=== PATIENT | male | born 1985 | race Caucasian/White ===

== ENCOUNTER 2018-07-11 00:27 | Inpatient (IN) | payer MEDICAID ==
[~2018-07-11] VITALS: Ht 180.3 cm; Wt 90.4 kg
[2018-07-11] MEDS ORDERED: RACEPINEPHRINE 2.25% 13.5 MG/0.5 ML NEBU INH ONE (00:30)
[2018-07-11 00:37] VITALS: BP 122/81
[2018-07-11] MEDS ORDERED: FAMOTIDINE 20 MG/2 ML VIAL IVP ONE ×2 (00:45→01:20)
[2018-07-11] MEDS ORDERED: diphenhydrAMINE 50 MG/ML VIAL IVP ONE ×4 (00:45→04:40)
[2018-07-11] MEDS ORDERED: PANTOPRAZOLE 40 MG INJ VIAL IVP ONE (01:20)
[2018-07-11] MEDS ORDERED: MORPHINE SULFATE 4 MG/ML SYR IVP ONE ×2 (01:20→04:15)
[2018-07-11] MEDS ORDERED: ONDANSETRON 4 MG/2 ML VIAL IVP ONE (01:50)
[2018-07-11] MEDS ORDERED: LORazepam 2 MG/ML VIAL IM/IVP PRN (04:05)
[2018-07-11] MEDS ORDERED: DOCUSATE SODIUM 100 MG GELCAP PO PRN (04:05)
[2018-07-11] MEDS ORDERED: ONDANSETRON 4 MG/2 ML VIAL IM/IVP PRN (04:05)
[2018-07-11] MEDS ORDERED: HYDROcodone/APAP 5/325 MG 1 TAB TAB PO PRN (04:05)
[2018-07-11] MEDS ORDERED: ZOLPIDEM 5 MG TAB PO PRN (04:05)
[2018-07-11] MEDS ORDERED: DEXT 5% / NACL 0.45% 1,000 ML IV SCH (04:05)
[2018-07-11] MEDS ORDERED: ACETAMINOPHEN 325 MG TAB PO PRN (04:05)
[2018-07-11] MEDS ORDERED: ELA50 PO (04:26)
[2018-07-11] MEDS ORDERED: BUPR300T70 PO (04:27)
[2018-07-11] MEDS ORDERED: ARIP5TAB8 PO (04:28)
[2018-07-11] MEDS ORDERED: CETI-32 PO (04:30)
[2018-07-11] MEDS ORDERED: ALPR0.5T2 PO (04:30)
[2018-07-11] MEDS ORDERED: BEN50 PO (04:31)
[2018-07-11] MEDS ORDERED: diphenhydrAMINE 50 MG/ML VIAL IVP PRN ×4 (04:40→08:35)
[2018-07-11] MEDS ORDERED: NACL 0.9% 1,000 ML IV SCH (05:15)
[2018-07-11] MEDS ORDERED: ALBUTEROL SULFATE/IPRATROPIU 3 ML SOL IH PRN (05:25)
[2018-07-11] MEDS ORDERED: KETOROLAC 15 MG/ML VIAL IVP PRN (06:25)
[2018-07-11] MEDS ORDERED: MORPHINE SULFATE 4 MG/ML SYR IVP PRN (06:25)
[2018-07-11] MEDS ORDERED: ALBUTEROL SULFATE/IPRATROPIU 3 ML SOL IH SCH (07:00)
[2018-07-11 07:14] LABS: ANION GAP 11.6 (8-16); CARBON DIOXIDE 29.2 mmol/L (21-32); POTASSIUM 3.8 mmol/L (3.5-5.1); TOTAL BILIRUBIN 0.3 mg/dL (0.0-1.0)
[2018-07-11 07:29] LABS: CHOL/HDL RATIO 5.6 (1-4.5); MAGNESIUM 1.9 mg/dL (1.8-2.4); PHOSPHORUS 5.1 mg/dL (2.5-4.9); THYROID STIMULATING HORMONE 6.5 uIU/mL (0.34-3.74)
[2018-07-11] MEDS ORDERED: FAMOTIDINE 20 MG TAB PO SCH (07:30)
[2018-07-11 07:51] LABS: BASOPHILS % (AUTO) 0.6 % (0.0-2.0); EOSINOPHILS # (AUTO) 0.1 K/uL (0-0.4); EOSINOPHILS % (AUTO) 1.3 % (0.0-4.0); HEMATOCRIT 46.6 % (36-52); HEMOGLOBIN 15.6 g/dL (12.0-18.0); LYMPHOCYTES # (AUTO) 2.2 K/uL (2.0-11.5); LYMPHOCYTES % (AUTO) 37.1 % (20.5-51.1); MEAN CORPUSCULAR HEMOGLOBIN 30 pg (27-31); MEAN CORPUSCULAR HGB CONC 34 g/dL (33-37); MONOCYTES # (AUTO) 0.6 K/uL (0.8-1.0); MONOCYTES % (AUTO) 10.9 % (1.7-9.3); NEUTROPHILS # (AUTO) 2.9 K/uL (1.8-7.7); NEUTROPHILS % (AUTO) 50.1 % (42.2-75.2); PLATELET COUNT (AUTO) 222 K/uL (140-450); RED CELL DISTRIBUTION WIDTH 13.7 % (11.6-13.7); WHITE BLOOD COUNT (AUTO) 5.8 K/uL (4.8-10.8)
[2018-07-11 08:00] VITALS: BP 118/76
[2018-07-11 08:14] LABS: PROTHROMBIN TIME 10.5 secs (10.8-13.4)
[2018-07-11] MEDS ORDERED: MORPHINE SULFATE 2 MG/ML SYR IVP PRN (08:18)
[2018-07-11] MEDS ORDERED: diphenhydrAMINE 50 MG/ML VIAL IVP SCH (08:30)
[2018-07-11] MEDS ORDERED: PANTOPRAZOLE 40 MG INJ VIAL IVP SCH (09:00)
[2018-07-11] MEDS ORDERED: ARIPiprazole 10 MG TAB PO SCH (09:00)
[2018-07-11] MEDS ORDERED: ATORVASTATIN 20 MG TAB PO SCH (09:00)
[2018-07-11] MEDS ORDERED: LORATADINE 10 MG TAB PO SCH ×2 (09:00)
[2018-07-11] MEDS ORDERED: CALCIUM ACETATE 667 MG TAB PO SCH (09:00)
[2018-07-11] MEDS ORDERED: buPROPion 75 MG TAB PO SCH (09:01)
[2018-07-11] MEDS ORDERED: SERTRALINE 50 MG TAB PO SCH (09:02)
[2018-07-11] MEDS ORDERED: MONTELUKAST SODIUM 10 MG TAB PO SCH (21:00)
[2018-07-11] MEDS ORDERED: AMITRIPTYLINE 50 MG TAB PO SCH (21:00)
[2018-07-12] MEDS ORDERED: SERTRALINE 50 MG TAB PO SCH (09:00)
[2018-07-12] MEDS ORDERED: buPROPion 75 MG TAB PO SCH (09:00)
== END 2018-07-11 10:50 | disposition left against medical advice (07) | DRG 811 ==
LOC: MED 00:27 → MTU 04:10
PROVIDERS: ADMIT General Practice; ATTEND General Practice
DX: T78.2XXA Anaphylactic shock, unspecified, initial encounter (principal); D89.42 Idiopathic mast cell activation syndrome; E66.3 Overweight; Z68.27 Body mass index [BMI] 27.0-27.9, adult; E78.1 Pure hyperglyceridemia; E83.39 Other disorders of phosphorus metabolism; F41.8 Other specified anxiety disorders; Z88.8 Allergy status to other drugs, medicaments and biological substances; F32.9 Major depressive disorder, single episode, unspecified; Z81.8 Family history of other mental and behavioral disorders; Z82.49 Family history of ischemic heart disease and other diseases of the circulatory system; J45.909 Unspecified asthma, uncomplicated; E02 Subclinical iodine-deficiency hypothyroidism; Z53.21 Procedure and treatment not carried out due to patient leaving prior to being seen by health care provider
CPT/HCPCS: 36415; 71045; 80053; 83036; 83690; 83735; 83880; 84100; 84439; 84443; 85025; 85610; 85730; 87081; 93005; 94640; 96372; 96374; 96375; 96376; 99285; C9113; J0171; J1200; J2270; J2405; J3490; J7030; J7620; Q0092

== ENCOUNTER 2018-07-14 01:05 | Inpatient (IN) | payer MEDICAID ==
[~2018-07-14] VITALS: Ht 177.8 cm; Wt 90.7 kg
[2018-07-14 01:05] VITALS: BP 131/105
[~2018-07-14 01:05] MED LIST: ALPR0.5T2 PO; ARIP5TAB8 PO; BEN50 PO; BUPR300T70 PO; CETI-32 PO; ELA50 PO
--- NOTE | 2018-07-14 01:05 | NUR ---
PT AMBULATED TO BED 10 WITH SEVERE RESPIRATORY DISTRESS.
[2018-07-14] MEDS ORDERED: NACL 0.9% 1,000 ML IV ONE (01:10)
[2018-07-14] MEDS ORDERED: FAMOTIDINE 20 MG/2 ML VIAL IVP ONE (01:10)
[2018-07-14] MEDS ORDERED: RACEPINEPHRINE 2.25% 13.5 MG/0.5 ML NEBU INH ONE ×3 (01:10→03:11)
--- NOTE | 2018-07-14 01:10 | NUR ---
PT PRESENTS TO ED WITH C/O SOB/ALLERGIC REACTION. PT HAS AUDIBLE WHEEZING INSPIRATORY AND EXPIRATORY. PT UNABLE TO SPEAK FULL SENTECES AT THIS TIME. PT IS TACHYNYPIC. ER MD AT BEDSIDE ALONG WITH RN AND RT. PT ATTACHED TO ALL MONITORS.
[2018-07-14] MEDS ORDERED: diphenhydrAMINE 50 MG/ML VIAL IM ONE (01:55)
--- NOTE | 2018-07-14 02:00 | NUR ---
PT BEGINNING TO HAVE AUDIBLE WHEEZING AND RASH SPREADING ER AWARE- NEW ORDERS RECEIVED IN EMAR.
[2018-07-14] MEDS ORDERED: diphenhydrAMINE 50 MG/ML VIAL ONE (02:06)
--- NOTE | 2018-07-14 02:10 | NUR ---
RT AT BEDSIDE.
[2018-07-14] MEDS ORDERED: NACL 0.9% 1,000 ML IV SCH (02:18)
--- NOTE | 2018-07-14 02:21 | NUR ---
UNABLE TO OBTAIN IV ACCESS AT THIS TIME. ER AWARE.
[2018-07-14] MEDS ORDERED: diphenhydrAMINE 50 MG CAP PO PRN (02:25)
[2018-07-14] MEDS ORDERED: FAMOTIDINE 20 MG TAB PO SCH (02:25)
--- NOTE | 2018-07-14 02:27 | NUR ---
PER ER -- OKAY TO ADMIT WITHOUT IV ACCESS.
--- NOTE | 2018-07-14 02:40 | NUR ---
PEPCID NOT GIVEN. PT UNABLE TO SWALLOW PO MEDS AT THIS TIME.
--- NOTE | 2018-07-14 02:40 | NUR ---
PT RECEIVED FROM ED NURSE AT BEDSIDE. PT TACHYCARDIC. AAOX4. INTRODUCED SELF TO PT. BOARD UPDATED. NO COMPLAINTS OF PAIN. PT STILL SOB. AFEBRILE. NO IV ACCESS FROM ER DUE TO PT BEING A HARD STICK. SKIN WARM, DRY, AND INTACT WITH NO OPEN WOUNDS. BED LOCKED IN LOW POSITION. CALL BARRERA WITHIN REACH. SAFETY PRECAUTIONS IN PLACE.
--- NOTE | 2018-07-14 02:50 | NUR ---
PT HAS COMPLAINTS OF SOB. AUDIBLE WHEEZING. PT STATES HE FEELS LIKE HIS THROAT IS CLOSING. MD NOTIFIED. NO NEW ORDERS PUT IN. RT CALLED FOR O2 SUPPORT.
--- NOTE | 2018-07-14 02:54 | NUR ---
Patient will be admitted to care of DR JENNINGS. Admited to TELE. Will go to room 120-B. Belongings list completed. Report to MISAEL MERCADO.
--- NOTE | 2018-07-14 02:55 | NUR ---
RT ARRIVED. O2 GIVEN BY NASAL CANNULA WITH NO AID IN SOB. RT BROUGHT IN BIVALVE MASK STILL NOT HELPING.
--- NOTE | 2018-07-14 03:00 | NUR ---
RT TO OVERRIDE FOR RACEPINEPHRINE DUE TO PT IN DISTRESS.
--- NOTE | 2018-07-14 03:10 | NUR ---
Racemic Epinephrine overriden and given to patient due to extreme upper airway swelling, medication ordered but not yet verified by pharmacy.
[2018-07-14 03:20] VITALS: BP 154/82
--- NOTE | 2018-07-14 03:20 | NUR ---
BENADRYL 25MG IM GIVEN.
--- NOTE | 2018-07-14 03:20 | NUR ---
RECEIVING TEAM MEMBER, ER CHARGE NURSE, AND SHOE COBBLER ATTEMPTING TO INSERT IV. PT VERY HARD STICK.
[2018-07-14] MEDS ORDERED: LORazepam 2 MG/ML VIAL IM/IVP PRN (03:35)
--- NOTE | 2018-07-14 03:45 | NUR ---
PT STABILIZING. O2 SAT 100%, HR 105.
[2018-07-14] MEDS ORDERED: ACETAMINOPHEN 650 MG SUPP RC PRN (03:50)
[2018-07-14 04:00] VITALS: BP 143/71
[2018-07-14] MEDS ORDERED: diphenhydrAMINE 50 MG/ML VIAL IM SCH (04:00)
[2018-07-14] MEDS ORDERED: MORPHINE SULFATE 2 MG/ML SYR IVP PRN (05:10)
[2018-07-14] MEDS ORDERED: ONDANSETRON 4 MG/2 ML VIAL IM/IVP PRN (05:10)
--- NOTE | 2018-07-14 05:30 | NUR ---
PT SLEEPING COMFORTABLY IN BED. NO S/S OF DISTRESS NOTED. WILL CONTINUE TO MONITOR.
[2018-07-14] MEDS ORDERED: BENZOCAINE/MENTHOL 1 LOZ MM PRN (06:30)
--- NOTE | 2018-07-14 07:15 | NUR ---
REPORT GIVEN TO AM NURSE AT BEDSIDE. PT IN STABLE CONDITION.
[2018-07-14 08:00] VITALS: BP 125/80
[2018-07-14] MEDS ORDERED: ALBUTEROL 0.083% 2.5 MG/3 ML NEBU INH PRN (08:00)
[2018-07-14] MEDS ORDERED: RACEPINEPHRINE 2.25% 13.5 MG/0.5 ML NEBU INH PRN (08:00)
[2018-07-14] MEDS ORDERED: ALBUTEROL SULFATE/IPRATROPIU 3 ML SOL IH PRN (08:15)
--- NOTE | 2018-07-14 08:19 | NUR ---
PATIENT HAS BEEN SCREENED AND CATEGORIZED HIGH NUTRITION RISK. PATIENT WILL BE SEEN WITHIN 1-2 DAYS OF ADMISSION. 07/14/18-07/15/[address]
--- NOTE | 2018-07-14 08:20 | NUR ---
RECEIVED BEDSIDE REPORT FROM SHOE LAY OUT PLANNER NURSE. PATIENT AAOX4. PATIENT ON 3 L NC, NO DISTRESS NOTED. PATIENT AMBULATORY AND CONTINENT. NO IV IN PLACE. ORDER FOR PICC LINE INSERTION. SKIN INTACT. BED IN LOW POSITION, CALL LIGHT WITHIN REACH. WILL CONTINUE TO MONITOR.
[2018-07-14] MEDS ORDERED: diphenhydrAMINE 50 MG CAP PO SCH ×2 (08:45→12:00)
--- NOTE | 2018-07-14 08:55 | NUR ---
PATIENT FOUND IN ROOM DRESSED IN OWN CLOTHES. PATIENT REMOVED GOWN AND REMOVED TELE MONITOR.
[2018-07-14] MEDS ORDERED: ALBUTEROL 0.083% 2.5 MG/3 ML NEBU INH SCH ×3 (09:00→11:00)
[2018-07-14] MEDS ORDERED: LORATADINE 10 MG TAB PO SCH (09:00)
--- NOTE | 2018-07-14 09:00 | NUR ---
DR. JUAREZ NOTIFIED OF PATIENT REQUESTING TO LEAVE AMA. EXPLAINED TO PATIENT NEED TO STAY IN HOSPITAL, PATIENT STILL REFUSES TO STAY. PATIENT REFUSES TO SIGN AMA PAPERS. PATIENT REFUSES TO HAVE US REMOVE ID BAND. PATIENT ELOPED.
--- NOTE | 2018-07-14 09:04 | NUR ---
PATIENT ELOPED. NO ID BANDS REMOVED, TELE MONITOR REMOVED FROM PATIENT.
--- NOTE | 2018-07-14 17:55 | NUR ---
* ST NOTE * Clinician attempting to complete Bedside Dysphagia and oral mechanism exams but Nsg reporting pt eloped AMA this afternoon despite maximal education and cueing provided by Nsg. D/C ST eval order at this time 2/2 to pt eloping and leaving [facility] AMA. JO-ANN
[2018-07-14] MEDS ORDERED: MONTELUKAST SODIUM 10 MG TAB PO SCH (21:00)
== END 2018-07-14 09:04 | disposition left against medical advice (07) | DRG 811 ==
LOC: MED 01:05 → MTU 02:21
PROVIDERS: ADMIT General Practice; ATTEND General Practice
DX: T78.2XXA Anaphylactic shock, unspecified, initial encounter (principal); D89.42 Idiopathic mast cell activation syndrome; I10 Essential (primary) hypertension; F41.1 Generalized anxiety disorder; E66.3 Overweight; J45.909 Unspecified asthma, uncomplicated; F32.9 Major depressive disorder, single episode, unspecified; F43.0 Acute stress reaction; Z53.21 Procedure and treatment not carried out due to patient leaving prior to being seen by health care provider; Z68.28 Body mass index [BMI] 28.0-28.9, adult; Z71.3 Dietary counseling and surveillance; Z88.8 Allergy status to other drugs, medicaments and biological substances; Z79.899 Other long term (current) drug therapy; Z82.49 Family history of ischemic heart disease and other diseases of the circulatory system; Z82.0 Family history of epilepsy and other diseases of the nervous system; Z76.5 Malingerer [conscious simulation]
CPT/HCPCS: 87081; 94640; 96372; 99285; J0171; J1200; J3490; J7620

== ENCOUNTER 2019-03-19 03:10 | Inpatient (IN) | payer MEDICAID ==
[~2019-03-19] VITALS: Ht 177.8 cm; Wt 95.7 kg
[2019-03-19] VITALS (10 sets, daily range): BP systolic 108–133; BP diastolic 42–86
--- NOTE | 2019-03-19 03:10 | NUR ---
PT W/C ASSISTED TO ER BED 4
--- NOTE | 2019-03-19 03:12 | NUR ---
Respiratory Therapist at bedside for respiratory intervention
[2019-03-19] MEDS ORDERED: EPINEPHrine 1:1000 - 1 MG/ML AMP ONE ×4 (03:13→07:33)
[2019-03-19] MEDS ORDERED: ALBUTEROL 0.083% 2.5 MG/3 ML NEBU INH ONE (03:15)
[2019-03-19] MEDS ORDERED: ALBUTEROL SULFATE/IPRATROPIU 3 ML SOL IH ONE (03:15)
[2019-03-19] MEDS ORDERED: EPINEPHrine 1:1000 - 1 MG/ML AMP IM ONE ×2 (03:15→03:35)
--- NOTE | 2019-03-19 03:31 | NUR ---
Dr. Lomeli examining patient.
[2019-03-19] MEDS ORDERED: diphenhydrAMINE 50 MG/ML VIAL IVP ONE ×2 (03:35→05:10)
[2019-03-19] MEDS ORDERED: FAMOTIDINE 20 MG/2 ML VIAL IVP ONE (03:35)
[2019-03-19] MEDS ORDERED: RACEPINEPHRINE 2.25% 13.5 MG/0.5 ML NEBU INH ONE (03:35)
[2019-03-19] MEDS ORDERED: EPINEPHrine 1:1000 (1 mg/mL) 3 MG in DEXTROSE 5% 250 ML IV ONE (04:00)
--- NOTE | 2019-03-19 04:02 | NUR ---
33 Y/O MALE BIB FRIEND. PRESENTS TO ED C/O SOB, DYSPNEA. FRIEND STATES PT WAS AT [employer] EATING WHEN PT HAD SOB. PT WAS RECENTLY RELEASED FROM ICU AT HOSPITAL ADMITTED FOR ANAPHYLACTIC SHOCK. PT PRESENTS FLUSHED, UNABLE TO VERBALIZE ANY WORDS. BILAT UPPER LOBES WHEEZING. PT RECEIVED 0.3MG EPI IM AT BEDSIDE. MEDICATION EFFECTIVE. WHEEZES SLIGHTLY DIMINISHED. WILL CONTINUE TO MONITOR.
[2019-03-19] MEDS ORDERED: KETOROLAC 30 MG/ML VIAL IVP ONE (04:05)
[2019-03-19 04:20] LABS: BASOPHILS % (AUTO) 0.6 % (0.0-2.0); EOSINOPHILS # (AUTO) 0.1 K/uL (0-0.4); EOSINOPHILS % (AUTO) 0.9 % (0.0-4.0); HEMATOCRIT 44.7 % (36-52); HEMOGLOBIN 15.1 g/dL (12.0-18.0); LYMPHOCYTES # (AUTO) 3.3 K/uL (2.0-11.5); LYMPHOCYTES % (AUTO) 42.8 % (20.5-51.1); MEAN CORPUSCULAR HEMOGLOBIN 30 pg (27-31); MEAN CORPUSCULAR HGB CONC 34 g/dL (33-37); MEAN CORPUSCULAR VOLUME 87.8 fL (80-94); MONOCYTES # (AUTO) 0.6 K/uL (0.8-1.0); NEUTROPHILS # (AUTO) 3.7 K/uL (1.8-7.7); NEUTROPHILS % (AUTO) 47.7 % (42.2-75.2); PLATELET COUNT (AUTO) 225 K/uL (140-450); RED BLOOD CELL COUNT(AUTO) 5.09 MIL/uL (4.20-6.10); RED CELL DISTRIBUTION WIDTH 14.4 % (11.6-13.7); WHITE BLOOD COUNT (AUTO) 7.7 K/uL (4.8-10.8)
--- NOTE | 2019-03-19 04:22 | NUR ---
X-Ray at bedside.
[2019-03-19 04:34] LABS: ANION GAP 13.7 (8-16); CARBON DIOXIDE 25.8 mmol/L (21-32); POTASSIUM 3.5 mmol/L (3.5-5.1); TOTAL BILIRUBIN 0.3 mg/dL (0.0-1.0)
[2019-03-19] MEDS ORDERED: MORPHINE SULFATE 4 MG/ML SYR IVP ONE (04:50)
--- NOTE | 2019-03-19 05:19 | NUR ---
PULLED BENADRYL 50MG; WASTED 25MG; ADMINISTERED 25MG TO PATIENT FOR ITCHING.
--- NOTE | 2019-03-19 05:35 | NUR ---
PT TRANSFERED TO ICU 3 VIA GURNEY WITH SADIE DOUGLAS AND DEL RN. SADIE TO TAKE OVER 1:1 CARE WITH PT IN ROOM ICU 3.
--- NOTE | 2019-03-19 05:58 | NUR ---
RECEIVED REPORT FROM ED NURSE. PT AAOX4 FOLLOWING COMMANDS; AMBULATORY. PT HAS COARSE VOICE, PT DENIES CP/SOB. CLEAR LUNG SOUNDS. NO SWELLING NOTED. EPI DRIP RUNNING @ 3 MCG/MIN PER ERMD ORDER THROUGH PIV TO L HAND 24 G. BED LOCKED IN LOWEST POSITION. WILL CONTINUE TO OBSERVE.
[2019-03-19] MEDS ORDERED: ALPR1TAB2 PO (06:11)
[2019-03-19] MEDS ORDERED: ARIP2TAB2 PO (06:12)
[2019-03-19] MEDS ORDERED: ESCI20TA PO (06:12)
[2019-03-19] MEDS ORDERED: EPINEPHrine 1:1000 (1 mg/mL) 3 MG in DEXTROSE 5% 250 ML IV PRN (06:15)
[2019-03-19] MEDS ORDERED: diphenhydrAMINE 50 MG/ML VIAL ONE (06:28)
--- NOTE | 2019-03-19 07:25 | NUR ---
REPORT GIVEN TO DAY SHIFT FOR CONTINUITY OF CARE
--- NOTE | 2019-03-19 07:30 | NUR ---
RECEIVED REPORT FROM STEVEN DOUGLAS , NEW ADMITTED FROM ER PT. IS AWAKE ALERT RESPONSE TO QUESTION PROPERLY . NO IV ACCESS AT THE TIME SKIN CLEAR. MOVE ALL EXTREAMITIES. O2 2L/NC.
--- NOTE | 2019-03-19 07:32 | NUR ---
PATIEN UNABLE TO BREATH FACE FLUSH PT. DID NOT HAVE IV AT THE TIME, EPINEPHINE SUBCUE GIVEN BREATHING TREATMENT GIVEN
--- NOTE | 2019-03-19 07:35 | NUR ---
HE FEEL BETTER ABLE TO LIE DOWN.
--- NOTE | 2019-03-19 08:21 | NUR ---
PATIENT HAS BEEN SCREENED AND CATEGORIZED MODERATE NUTRITION RISK. PATIENT WILL BE SEEN WITHIN 3-5 DAYS OF ADMISSION. 03/21/19 03/23/[address]
[2019-03-19] MEDS ORDERED: diphenhydrAMINE 50 MG CAP PO PRN (08:25)
[2019-03-19] MEDS ORDERED: EPINEPHrine 1:1000 - 1 MG/ML AMP SUBQ ONE (08:30)
[2019-03-19] MEDS ORDERED: FAMOTIDINE 20 MG TAB PO SCH (09:00)
[2019-03-19] MEDS ORDERED: EPINEPHrine 1:1000 - 1 MG/ML AMP IM SCH (09:15)
--- NOTE | 2019-03-19 09:40 | NUR ---
PICC LINE NURSE AT BED SITE.
[2019-03-19] MEDS: diphenhydrAMINE 50 MG/ML VIAL IVP PRN ×3 (10:25→20:05)
[2019-03-19] MEDS: ONDANSETRON 4 MG/2 ML VIAL IVP PRN ×3 (11:12→19:40)
[2019-03-19] MEDS ORDERED: RACEPINEPHRINE 2.25% 13.5 MG/0.5 ML NEBU INH PRN (12:15)
[2019-03-19] MEDS ORDERED: ALBUTEROL SULFATE/IPRATROPIU 3 ML SOL IH SCH (13:00)
--- NOTE | 2019-03-19 14:09 | NUR ---
*S.T. Bedside swallow eval completed* Pt presents w/ adequate oropharyngeal swallow function. No overt s/s aspiration observed across all textures. Pt is able to self-feed w/o difficulty. Recommend: 1) Advance to regular diet, thin liquids. Straws okay. 2) P.O. meds whole okay No further tx indicated at this time as pt demo's no clinical dysphagia. DC to [facility]. Endorsed to MISAEL Bullock. Time 8918-1543
--- NOTE | 2019-03-19 14:55 | NUR ---
PT AFTER HHN COMPLAINED OF BREATHING VERY TIGHT MISAEL GARCIA WAS CALLED TO ADMINISTER BENADRYL DR VALDERRAMA CALLED AND EXPLAINED TO WHAT HAPPENED CHANGED HHN ORDER TO Q6 PRN SOB WHEEZES RESP DISTRESS
[2019-03-19] MEDS ORDERED: ALBUTEROL SULFATE/IPRATROPIU 3 ML SOL IH PRN (15:40)
[2019-03-19] MEDS: diphenhydrAMINE 50 MG/ML VIAL IVP SCH ×2 (19:11→23:39)
[2019-03-19] MEDS: DEXT 5% / NACL 0.45% 1,000 ML IV SCH (19:35)
--- NOTE | 2019-03-19 19:44 | NUR ---
RECEIVED REPORT FROM AM NURSERADHA RN. PT AT BED AWAKE, PERRLA 3MM, ALERT AND ORIENTED X4, COOPERATIVE, CALM, HEART RATE REGULAR S1S2 PRESENT, SR ON MONITOR, CAP REFILL <3S, PULSES 2+ BILATERAL UPPER AND LOWER EXTREMITIES, LUNG SOUNDS CLEAR THROUGHOUT, PT ON ROOM AIR, ABDOMEN SOFT, ROUND, NONDISTENDED, NONTENDER, BOWEL SOUNDS ACTIVE IN ALL QUADRANTS, BLADDER SOFT ROUND, NONDISTENDED, NONTENDER, SKIN INTACT, WARM, DRY, COLOR APPROPRIATE FOR ETHNICITY, Addendum: 03/19/19 at 2039 by Zackery Conti RN ADDITION: MUSCLE STRENGTH 5/5 BILATERAL UPPER AND LOWER EXTREMITIES., PT HAS LEFT UPPER ARM PICC LINE, RUNNING D5 1/2 NS AT 75 ML/HR. HOB 30 DEGREES, SIDE RAILS UP X2, BED AT LOWEST POSITION. Addendum: 03/19/19 at 2131 by Zackery Conti RN CORRECTION: PT ON O2 NC AT 2L/MIN
--- NOTE | 2019-03-19 20:05 | NUR ---
PT HAS EPISODE OF S0B AND WHEEZING. ADMINISTERED EPINEPHRINE IM ORDERED.
[2019-03-19] MEDS: EPINEPHrine 1:1000 - 1 MG/ML AMP IM PRN (20:11)
[2019-03-19] MEDS: MONTELUKAST SODIUM 10 MG TAB PO SCH (20:16)
[2019-03-19] MEDS: FAMOTIDINE 20 MG/2 ML VIAL IV SCH (20:17)
[2019-03-19] MEDS: ACETAMINOPHEN 325 MG TAB PO PRN (20:25)
--- NOTE | 2019-03-19 20:30 | NUR ---
CALLED DR VASQUEZ REGARDING PT CONDITION. UPDATED ORDER ON BENADRYL. WILL CONTINUE TO MONITOR PT.
[2019-03-19] MEDS: MORPHINE SULFATE 2 MG/ML SYR IVP PRN (21:38)
--- NOTE | 2019-03-19 21:55 | NUR ---
PT AT BED, EYES CLOSED, BREATHING REGULARLY, PT ON 02 NC AT 2L/MIN. HOB 30 DEGREES, SIDE RAILS UP X2, BED AT LOWEST POSITION. WILL CONTINUE TO MONITOR.
[2019-03-20] VITALS (10 sets, daily range): BP systolic 98–140; BP diastolic 47–100
[2019-03-20] MEDS: DEXT 5% / NACL 0.45% 1,000 ML IV SCH (03:09)
[2019-03-20] MEDS: diphenhydrAMINE 50 MG/ML VIAL IVP PRN ×5 (04:25→23:09)
--- NOTE | 2019-03-20 04:28 | NUR ---
PT AWAKE, COMPLAINS OF ITCHINESS, ADMINISTERED PRN BENADRYL. WILL CONTINUE TO MONITOR.
[2019-03-20] MEDS: ACETAMINOPHEN 325 MG TAB PO PRN ×3 (04:35→15:04)
[2019-03-20 06:25] LABS: PROTHROMBIN TIME 10.8 secs (10.8-13.4)
[2019-03-20] MEDS: diphenhydrAMINE 50 MG/ML VIAL IVP SCH ×3 (06:43→17:20)
[2019-03-20 07:05] LABS: BASOPHILS % (AUTO) 0.4 % (0.0-2.0); EOSINOPHILS # (AUTO) 0.1 K/uL (0-0.4); EOSINOPHILS % (AUTO) 1.9 % (0.0-4.0); HEMATOCRIT 42.9 % (36-52); HEMOGLOBIN 14.2 g/dL (12.0-18.0); LYMPHOCYTES # (AUTO) 1.9 K/uL (2.0-11.5); LYMPHOCYTES % (AUTO) 32.7 % (20.5-51.1); MEAN CORPUSCULAR HEMOGLOBIN 30 pg (27-31); MEAN CORPUSCULAR HGB CONC 33 g/dL (33-37); MEAN CORPUSCULAR VOLUME 89.5 fL (80-94); MONOCYTES # (AUTO) 0.5 K/uL (0.8-1.0); MONOCYTES % (AUTO) 8.4 % (1.7-9.3); NEUTROPHILS # (AUTO) 3.2 K/uL (1.8-7.7); NEUTROPHILS % (AUTO) 56.6 % (42.2-75.2); PLATELET COUNT (AUTO) 211 K/uL (140-450); RED BLOOD CELL COUNT(AUTO) 4.79 MIL/uL (4.20-6.10); RED CELL DISTRIBUTION WIDTH 14.8 % (11.6-13.7); WHITE BLOOD COUNT (AUTO) 5.7 K/uL (4.8-10.8)
[2019-03-20 07:09] LABS: ANION GAP 14.5 (8-16); CARBON DIOXIDE 25.5 mmol/L (21-32)
--- NOTE | 2019-03-20 07:11 | NUR ---
CHANGE OF SHIFT REPORT GIVEN TO AM NURSE JUSTEN RN. PT AT STABLE CONDITION AT THIS TIME. EYES CLOSED, BREATHING REGULARLY.
[2019-03-20 07:19] LABS: MAGNESIUM 2.1 mg/dL (1.8-2.4)
--- NOTE | 2019-03-20 07:30 | NUR ---
RECEIVED BEDSIDE REPORT FROM MEDICAL INSURANCE VERIFIER RN. PT IS ASLEEP, EASILY AROUSABLE. AAOX4. AFEBRILE. NO C/O PAIN. NORMAL SINUS RHYTHM ON MONITOR. S1 +S2 HEARD. PULSES PALPABLE TO ALL EXTREMITIES. PT IS ON O2 AT 2 LPM/NC, SPO2 98%. NO SOB NOTED. BREATHING EVEN AND UNLABORED. ABDOMEN SOFT, NONTENDER, WITH ACTIVE BOWEL SOUNDS. PICC LINE TO LEFT UPPER ARM ASYMPTOMATIC, PATENT AND INTACT W/ GOOD BLOOD RETURN, RUNNING D5 1/2NS AT 75 ML/HR. SKIN IS INTACT, DRY AND WARM TO TOUCH. PT IS CONTINENT, 600 ML CLEAR YELLOW URINE NOTED IN URINAL. HOB AT 30 DEGREES. BED IN LOWEST POSITION LOCKED, CALL LIGHT WITHIN REACH. NO SIGNS OF DISTRESS NOTED AT THIS TIME. WILL CONTINUE TO MONITOR.
[2019-03-20] MEDS ORDERED: NON-FORMULARY ITEM (Aripiprazole (Abilify) 2 MG) PO SCH (08:00)
[2019-03-20] MEDS ORDERED: NON-FORMULARY ITEM (Bupropion HCl* (Wellbutrin Xl*) 300 MG) PO SCH (08:00)
[2019-03-20] MEDS: ONDANSETRON 4 MG/2 ML VIAL IVP PRN ×4 (08:31→20:38)
[2019-03-20] MEDS: MORPHINE SULFATE 2 MG/ML SYR IVP PRN ×4 (08:32→20:38)
[2019-03-20] MEDS: EPINEPHrine 1:1000 - 1 MG/ML AMP IM PRN (08:39)
[2019-03-20] MEDS: FAMOTIDINE 20 MG/2 ML VIAL IV SCH ×2 (09:05→20:31)
[2019-03-20] MEDS: buPROPion 150 MG TABER PO SCH (09:05)
[2019-03-20] MEDS: ESCITALOPRAM 20 MG TAB PO SCH (09:06)
[2019-03-20] MEDS ORDERED: HYDROcodone/APAP 5/325 MG 1 TAB TAB PO PRN (09:10)
--- NOTE | 2019-03-20 09:10 | NUR ---
MEDICATIONS ADMINISTERED ORDERED. PT TOLERATED WELL. PT STATED HE TAKES ABILIFY [address] VASQUEZ MADE AWARE BY CHARGE NURSE. WILL FOLLOW UP ON ORDERS.
[2019-03-20] MEDS: ARIPiprazole 10 MG TAB PO SCH (09:49)
--- NOTE | 2019-03-20 11:05 | NUR ---
PT SEEN AND EXAMINED BY DR. VASQUEZ. WILL FOLLOW UP ON ORDERS.
--- NOTE | 2019-03-20 12:25 | NUR ---
PT HAVING LUNCH. ABLE TO EAT INDEPENDENTLY. VSS. NO SOB OR ANY DISTRESS NOTED. SAFETY PRECAUTIONS IN PLACE.
--- NOTE | 2019-03-20 14:45 | NUR ---
PT VOIDED 500 ML OF CLEAR YELLOW URINE USING URINAL. NO S/SX OF ACUTE DISTRESS NOTED AT THIS TIME. ALL SAFETY PRECAUTIONS IN PLACE. WILL CONTINUE TO MONITOR.
--- NOTE | 2019-03-20 17:40 | NUR ---
PT HAD 75% OF DINNER. NO C/O PAIN, SOB OR DISCOMFORT NOTED AT THIS TIME. VSS. WILL CONTINUE TO MONITOR.
--- NOTE | 2019-03-20 18:30 | NUR ---
PT TRANSFERRED TO TELEMETRY ROOM 111B VIA WHEELCHAIR BY FREIGHT CAR CLEANER. VSS. NO SIGNS OF ACUTE DISTRESS NOTED AT THIS TIME.
--- NOTE | 2019-03-20 18:40 | NUR ---
Patient transfered to tele room 111 bed B by the nursing garbage collection supervisor. place patient in bed, call light in reach. ICU nurse attempted to call repoert few times. Patient stable, placed on the monitor. informed accepting RN. will continue to monitor.
--- NOTE | 2019-03-20 18:55 | NUR ---
REPORT GIVEN TO KILN BURNER RN FOR CONTINUITY OF CARE. PT IS IN STABLE CONDITION.
--- NOTE | 2019-03-20 19:15 | NUR ---
RECEIVED PT FROM AM NURSE. PT AT BED AWAKE. PERRLA 3MM, BRISK, COOPERATIVE, HEART RATE REGULAR, S1S2 PRESENT, CAP REFILL <3S, PULSES 2+ BILATERAL UPPER AND LOWER EXTREMITIES, LUNG SOUNDS CLEAR THROUGHOUT, PT ON ROOM AIR, ABDOMEN, SOFT, ROUND, NONDISTENDED, NONTENDER, BLADDER SOFT, ROUND, NONDISTENDED, NONTENDER, MUSCLE STRENGTH 5/5 BUE BLE, SKIN INTACT, WARM, DRY, COLOR APPROPRIATE TO ETHNICITY. PT HAS LEFT UPPER ARM PICC LINE. SALINE LOCK. HOB 30 DEGREES, SIDE RAILS UP X2, BED AT LOWEST POSITION, WILL CONTINUE TO MONITOR.
[2019-03-20] MEDS: MONTELUKAST SODIUM 10 MG TAB PO SCH (20:30)
--- NOTE | 2019-03-20 21:30 | NUR ---
ADMINISTERED MEDICATIONS. PT AT BED AWAKE, BREATHING REGULARLY, HOB 30 DEGREES, SIDERAILS UP X2, BED AT LOWEST POSITION.
[2019-03-21] VITALS: BP 133/87
--- NOTE | 2019-03-21 00:20 | NUR ---
MEDICATION GIVEN. PT REQUESTED APPLE JUICE AND SANDWICH. WILL CONTINUE TO MONITOR.
[2019-03-21] MEDS: diphenhydrAMINE 50 MG/ML VIAL IVP SCH ×3 (00:38→11:04)
--- NOTE | 2019-03-21 01:51 | NUR ---
PT AT BED EYES CLOSED, BREATHING REGULARLY. HOB 30 DEGREES, SIDE RAILS UP X2, BED AT LOWEST POSITION.
[2019-03-21] MEDS: ONDANSETRON 4 MG/2 ML VIAL IVP PRN (02:34)
[2019-03-21] MEDS: MORPHINE SULFATE 2 MG/ML SYR IVP PRN ×2 (02:37→10:32)
[2019-03-21 04:00] VITALS: BP 129/78
[2019-03-21] MEDS: diphenhydrAMINE 50 MG/ML VIAL IVP PRN ×3 (04:26→14:17)
--- NOTE | 2019-03-21 05:13 | NUR ---
PT AT BED AWAKE, BREATHING REGULARLY ON ROOM AIR, HOB 30 DEGREES, SIDE RAILS UP X2, BED AT LOWEST POSITION.
--- NOTE | 2019-03-21 07:28 | NUR ---
CHANGE OF SHIFT REPORT GIVEN TO AM NURSE. PT AT STABLE CONDITION AT THIS TIME.
--- NOTE | 2019-03-21 07:30 | NUR ---
RECEIVED PT FROM PM NURSE. PT IS AWAKE AND COOPERATIVE, HEART RATE REGULAR, S1S2 PRESENT, CAP REFILL <3S, PULSES 2+ BILATERAL UPPER AND LOWER EXTREMITIES, LUNG SOUNDS CLEAR THROUGHOUT, PT ON ROOM AIR, ABDOMEN, SOFT, ROUND, NONDISTENDED,SKIN INTACT, WARM, DRY, COLOR APPROPRIATE TO ETHNICITY. PT HAS LEFT UPPER ARM PICC LINE. SALINE LOCK. HOB 30 DEGREES, SIDE RAILS UP X2, BED AT LOWEST POSITION, WILL CONTINUE TO MONITOR.
[2019-03-21] MEDS ORDERED: EPINEPHrine 1:1000 - 1 MG/ML AMP ONE (07:48)
[2019-03-21 08:00] VITALS: BP 116/72
[2019-03-21] MEDS: ARIPiprazole 10 MG TAB PO SCH (08:42)
[2019-03-21] MEDS: ESCITALOPRAM 20 MG TAB PO SCH (08:43)
[2019-03-21] MEDS: ACETAMINOPHEN 325 MG TAB PO PRN (08:44)
[2019-03-21] MEDS: buPROPion 150 MG TABER PO SCH (08:44)
[2019-03-21] MEDS: FAMOTIDINE 20 MG/2 ML VIAL IV SCH (08:45)
[2019-03-21 09:42] LABS: IMMUNOGLOBULIN A 235 mg/dL (90-386); IMMUNOGLOBULIN G 951 mg/dL (700-1600); IMMUNOGLOBULIN M 51 mg/dL (20-172)
[2019-03-21 10:55] LABS: ANION GAP 14.4 (8-16); CARBON DIOXIDE 26.4 mmol/L (21-32); CREATININE 1.2 mg/dL (0.7-1.3); POTASSIUM 3.8 mmol/L (3.5-5.1)
[2019-03-21 11:00] LABS: BASOPHILS % (AUTO) 0.4 % (0.0-2.0); EOSINOPHILS # (AUTO) 0.1 K/uL (0-0.4); HEMATOCRIT 44.9 % (36-52); HEMOGLOBIN 14.9 g/dL (12.0-18.0); LYMPHOCYTES # (AUTO) 1.4 K/uL (2.0-11.5); LYMPHOCYTES % (AUTO) 18.5 % (20.5-51.1); MEAN CORPUSCULAR HEMOGLOBIN 30 pg (27-31); MEAN CORPUSCULAR HGB CONC 33 g/dL (33-37); MEAN CORPUSCULAR VOLUME 89.1 fL (80-94); MONOCYTES # (AUTO) 0.5 K/uL (0.8-1.0); MONOCYTES % (AUTO) 6.4 % (1.7-9.3); NEUTROPHILS # (AUTO) 5.7 K/uL (1.8-7.7); NEUTROPHILS % (AUTO) 73.7 % (42.2-75.2); PLATELET COUNT (AUTO) 206 K/uL (140-450); RED BLOOD CELL COUNT(AUTO) 5.04 MIL/uL (4.20-6.10); RED CELL DISTRIBUTION WIDTH 14.9 % (11.6-13.7); WHITE BLOOD COUNT (AUTO) 7.7 K/uL (4.8-10.8)
[2019-03-21 11:03] LABS: PHOSPHORUS 3.2 mg/dL (2.5-4.9)
--- NOTE | 2019-03-21 11:15 | NUR ---
PT STATED NO ONE CAN PICK HIM UP TO TAKE HIM HOME. OFFERED BUS PASS, PT STATED THAT HE IS DROWSY DUE TO THE BENADRYL. PT STATED HE WANTS TO TAKE A CAB HOME BUT HE HAS NO MOONE[place]/NO MONEY AND NO CREDIT CARD. DAGMAR BARRERA SUP NOTIFIED.
--- NOTE | 2019-03-21 11:50 | NUR ---
PT RESTING IN BED, NO S/S OF RESPIRATORY DISTRESS NOTED.
[2019-03-21 12:00] VITALS: BP 122/75
--- NOTE | 2019-03-21 13:59 | NUR ---
PT SIGNED D/C PAPER. QUESTIONS ANSWERED. CHARGE NURSE CALLED [facility]. NOTIFIED PT WE WILL CALL CAB FOR HIM. PT STATED HE WILL GO [place] TO STAY WITH HIS MOM AND HE HAS PILLS AT HOME.
--- NOTE | 2019-03-21 13:59 | NUR ---
CONTACTED [facility], SPOKE WITH MYLES REGARDING THE [facility] SERVICE. PER MYLES, ETA WILL BE IN 45 MINS. JENNA ASSIGNED MADE AWARE.
--- NOTE | 2019-03-21 14:23 | NUR ---
PICC LINE REMOVED, TIP INTACT.
--- NOTE | 2019-03-21 14:48 | NUR ---
WALKED WITH PT TO PARKING LOT. PT REFUSED WHEEL CHAIR. TZX VOUCHER Addendum: 03/21/19 at 1613 by Emeka Dudley RN [employer] VOUCHER GIVEN TO MANAGER CARDIOVASCULAR AND COPY GIVEN TO PT. PT WALKED IN STEADY GAIT. VITALS STABLE.
--- NOTE | 2019-03-21 15:00 | NUR ---
FOUND PT'S EARING IN PT'S ROOM. HANDED TO SECURITY AND KEPT IN A BAG LABELED WITH PT'S NAME.
== END 2019-03-21 14:25 | disposition home or self-care (01) | DRG 811 ==
LOC: MED 03:10 → MIC 04:44 → MED 05:35 → MTU 03-20 18:30
PROVIDERS: ADMIT Internal Medicine Pulmonary Disease; ATTEND Internal Medicine Pulmonary Disease
PROC: 02HV33Z Insertion of Infusion Device into Superior Vena Cava, Percutaneous Approach (ICD-10-PCS; principal; 2019-03-19)
PROC: B548ZZA Ultrasonography of Superior Vena Cava, Guidance (ICD-10-PCS; 2019-03-19)
DX: T78.2XXA Anaphylactic shock, unspecified, initial encounter (principal); J96.01 Acute respiratory failure with hypoxia; F32.9 Major depressive disorder, single episode, unspecified; F41.9 Anxiety disorder, unspecified; J45.909 Unspecified asthma, uncomplicated; Z88.8 Allergy status to other drugs, medicaments and biological substances; Z79.899 Other long term (current) drug therapy; R65.10 Systemic inflammatory response syndrome (SIRS) of non-infectious origin without acute organ dysfunction
CPT/HCPCS: 36415; 71045; 80048; 80053; 82785; 83735; 84100; 85025; 85610; 85730; 86160; 87081; 92610; 94640; 94660; 96372; 96374; 96375; 96376; 99285; J0171; J1200; J1885; J2270; J2405; J3490; J7060; J7613; J7620; Q0092; Q0163

== ENCOUNTER 2019-03-24 22:30 | Inpatient (IN) | payer MEDICAID ==
[~2019-03-24] VITALS: Ht 177.8 cm; Wt 95.3 kg
[2019-03-24 22:30] VITALS: BP 149/101
[~2019-03-24 22:30] MED LIST changes: -ALPR0.5T2 PO; +ALPR1TAB2 PO; +ARIP2TAB2 PO; -ARIP5TAB8 PO; -BEN50 PO; -ELA50 PO; +ESCI20TA PO
--- NOTE | 2019-03-24 22:30 | NUR ---
PT TAKEN TO BED 10
--- NOTE | 2019-03-24 22:33 | NUR ---
Respiratory Therapist at bedside for respiratory intervention.
[2019-03-24] MEDS ORDERED: RACEPINEPHRINE 2.25% 13.5 MG/0.5 ML NEBU INH ONE ×2 (22:34→22:35)
[2019-03-24] MEDS ORDERED: EPINEPHrine 1:1000 - 1 MG/ML AMP ONE ×2 (22:35→23:34)
[2019-03-24] MEDS ORDERED: diphenhydrAMINE 50 MG/ML VIAL IVP ONE (22:35)
[2019-03-24] MEDS ORDERED: EPINEPHrine 1:1000 - 1 MG/ML AMP IM ONE ×2 (22:35→23:20)
[2019-03-24] MEDS ORDERED: FAMOTIDINE 20 MG/2 ML VIAL IVP ONE (22:35)
--- NOTE | 2019-03-24 22:45 | NUR ---
33 YO M BIB SELF FOR ANAPHYLACTIC RXN. PT UNABLE TO SPEAK RIGHT NOW. GASPING, STRIDOR, WHEEZING HEARD. FACIAL REDNESS, SWELLING. SPO2 96% ON RA. RESPIRATORY STAFF AND RN'S AT BEDSIDE FOR INTERVENTION. PMH-- IDIOPATHIC ANAPHYLAXIS
--- NOTE | 2019-03-24 23:00 | NUR ---
MULTIPLE RN ATTEMPTING PIV AT BEDSIDE. PT IS VERY HARD STICK.
--- NOTE | 2019-03-24 23:10 | NUR ---
PT IS ABLE TO SPEAK AND REPORTS FEELING BETTER. PT STATES "MY THROAT DOESN'T FEEL TIGHT ANYMORE". REPORTS 5/10 PAIN TO THROAT. LUNGS CTA. VOICE IS RASPY. NO AUDIBLE WHISTLING/WHEEZING HEARD AT THIS TIME.
--- NOTE | 2019-03-24 23:12 | NUR ---
PT STATES HE TOOK EPIPEN APPROX 20 MINS BEFORE COMING IN; NO RELIEF. PT STATES HE DOES NOT KNOW WHAT TRIGGERED RXN.
[2019-03-24 23:16] LABS: HEMATOCRIT 42.9 % (36-52); HEMOGLOBIN 14.7 g/dL (12.0-18.0); MEAN CORPUSCULAR HGB CONC 34 g/dL (33-37); WHITE BLOOD COUNT (AUTO) 5.8 K/uL (4.8-10.8)
--- NOTE | 2019-03-24 23:17 | NUR ---
XRAY AT BEDSIDE.
--- NOTE | 2019-03-24 23:21 | NUR ---
Dr. Lomeli examining patient.
[2019-03-24 23:23] LABS: BASOPHILS % (AUTO) 0.4 % (0.0-2.0); EOSINOPHILS # (AUTO) 0.1 K/uL (0-0.4); LYMPHOCYTES # (AUTO) 2.1 K/uL (2.0-11.5); LYMPHOCYTES % (AUTO) 35.7 % (20.5-51.1); MEAN CORPUSCULAR HEMOGLOBIN 30 pg (27-31); MEAN CORPUSCULAR VOLUME 88.3 fL (80-94); MONOCYTES # (AUTO) 0.5 K/uL (0.8-1.0); NEUTROPHILS # (AUTO) 3.1 K/uL (1.8-7.7); NEUTROPHILS % (AUTO) 52.9 % (42.2-75.2); PLATELET COUNT (AUTO) 234 K/uL (140-450); RED BLOOD CELL COUNT(AUTO) 4.85 MIL/uL (4.20-6.10); RED CELL DISTRIBUTION WIDTH 14.9 % (11.6-13.7)
[2019-03-24 23:24] LABS: ANION GAP 12.9 (8-16); CARBON DIOXIDE 25.5 mmol/L (21-32); CREATININE 1.1 mg/dL (0.7-1.3); POTASSIUM 3.4 mmol/L (3.5-5.1)
[2019-03-24] MEDS ORDERED: EPINEPHRINE IV PRN (23:30)
[2019-03-24] MEDS ORDERED: DEXTROSE 5% IV PRN (23:30)
[2019-03-24 23:31] LABS: TOTAL BILIRUBIN 0.3 mg/dL (0.0-1.0)
[2019-03-24] MEDS ORDERED: ONDANSETRON 4 MG/2 ML VIAL IVP ONE (23:35)
[2019-03-25] VITALS (25 sets, daily range): BP systolic 104–144; BP diastolic 59–94
--- NOTE | 2019-03-25 00:24 | NUR ---
PT RESTING IN BED. VSS. NO CHANGE IN CONDITION REPORTED AT THIS TIME. PT STATES HE FEELS OK.
--- NOTE | 2019-03-25 00:53 | NUR ---
Dr. Yelena Zhang examining patient.
--- NOTE | 2019-03-25 01:00 | NUR ---
PT STATES "I HAVE A THROBBING, POUNDING HEADACHE. LAST TIME THEY GAVE ME MORPHINE". DR. CARTER NOTIFIED. ORDERS RECEIVED.
--- NOTE | 2019-03-25 01:04 | NUR ---
RECEIVED REPORT FROM MISAEL DURBIN. PT IN BED RESTING VSS AT THIS TIME. WILL CONTINUE TO MONITOR CLOSELY.
[2019-03-25] MEDS ORDERED: MORPHINE SULFATE 4 MG/ML SYR IVP ONE (01:05)
[2019-03-25] MEDS ORDERED: POTASSIUM CHLORIDE 10 MEQ TABER PO PRN (01:05)
[2019-03-25] MEDS ORDERED: ACETAMINOPHEN 325 MG TAB PO PRN (01:05)
[2019-03-25] MEDS ORDERED: ONDANSETRON 4 MG/2 ML VIAL IVP PRN (01:05)
[2019-03-25] MEDS ORDERED: DEXTROSE 5% IV PRN (01:05)
[2019-03-25] MEDS ORDERED: ALBUTEROL 0.083% 2.5 MG/3 ML NEBU INH PRN (01:05)
[2019-03-25] MEDS ORDERED: MAGNESIUM OXIDE 400 MG TAB PO PRN (01:05)
[2019-03-25] MEDS ORDERED: EPINEPHRINE IV PRN (01:05)
[2019-03-25] MEDS ORDERED: MAG SULF 2000 MG/WATER PREMIX 50 ML IV PRN (01:05)
[2019-03-25] MEDS ORDERED: diphenhydrAMINE 50 MG/ML VIAL IVP ONE (01:35)
--- NOTE | 2019-03-25 01:40 | NUR ---
PIV DISLODGED FROM RIGHT THUMB. EPI DRIP HELD; ATTEMPTING NEW IV START.
--- NOTE | 2019-03-25 01:45 | NUR ---
PT AWAKE, A/O X 4. RESTING WITH VSS. SKIN PINK, WARM, DRY. PT REPORTS DECREASE IN HEADACHE PAIN; 2/10 AND STATES "I FEEL FINE FOR RIGHT NOW". PT STABLE FOR TRANSPORT TO ICU. EPI DRIP HELD PER DR. CONROY.
--- NOTE | 2019-03-25 01:50 | NUR ---
PHONE CALL TO DR CONROY; RE; PT ON EPINEPHRINE DRIP TO PERIPHERAL IV; PER DR CONROY, OK TO USE PERIPHERAL IV FOR THE DRIP. ALSO ORDERED TO STOP EPINEPHRINE DRIP AT 0700 Addendum: 03/25/19 at 0521 by Linda Connelly RN LATE ENTRY; PHONE CALL TO DR CONROY AFTER ER CHARGE NURSE CALLED THE UNIT.PT NO CENTRAL LINE/PICC LINE, ON EPINEPHRINE DRIP.PT ON THE WAY TO ICU
--- NOTE | 2019-03-25 01:50 | NUR ---
Patient will be admitted to care of Dr. Zhang. Admited to ICU. Will go to room 8. Belongings list completed. Report to MISAEL Mixon.
--- NOTE | 2019-03-25 01:55 | NUR ---
RECEIVED PT FROM ER VIA [facility].PT ABLE TO AMBULATE TO ICU ROOM 8 WITH STEADY GAIT.ATTACHED TO MONITORS.SR TO ST NOTED ON MONITOR.PT ON 02NC AT 2LPM.DIMINISHED BREATH SOUNDS NOTED.W/PERIPHERAL IV TO LT POINTER FINGER G24.PT ON EPINEPHRINE DRIP 5MG IN 250ML D5W AT 1MCG/MIN.PT ABLE TO VOID FREELY.MOVES ALL EXTREMITIES.DENIES PAIN.SKIN INTACT
[2019-03-25] MEDS: diphenhydrAMINE 50 MG/ML VIAL IVP SCH ×5 (03:17→20:16)
--- NOTE | 2019-03-25 03:17 | NUR ---
STRIDOR NOTED; BENADRYL GIVEN ORDERED. RT ALSO AT BEDSIDE; BREATHING TREATMENT GIVEN
[2019-03-25] MEDS: LORazepam 2 MG/ML VIAL IVP PRN ×2 (03:36→18:04)
--- NOTE | 2019-03-25 03:36 | NUR ---
PT APPEARS ANXIOUS; REQUESTED ATIVAN, ADMINISTERED ORDERED.
--- NOTE | 2019-03-25 04:15 | NUR ---
PT ASLEEP; SNORING.NO SOB NOTED.NO S/SX OF PAIN NOTED.NO STRIDOR NOTED.
--- NOTE | 2019-03-25 05:30 | NUR ---
PT AWAKE; REQUESTING BENADRYL, RR 19; 02SAT 93% ON 02NC AT 2LPM.NO STRIDOR NOTED.BREATHING EASY.NON LABORED.INFORMED PT THAT BENADRYL IS NOT DUE UNTIL 0800; PT VERBALIZED UNDERSTANDING AND WENT BACK TO SLEEP
--- NOTE | 2019-03-25 06:28 | NUR ---
called rt; pt having stridor; pt still on epinephrine drip at 1 mcg/min. 02sat at 95% per rts pulse oximeter.
[2019-03-25] MEDS: RACEPINEPHRINE 2.25% 13.5 MG/0.5 ML NEBU INH PRN ×2 (06:37→22:04)
--- NOTE | 2019-03-25 06:37 | NUR ---
STATE AUDITOR CALLED TO BEDSIDE PATIENT PRESENTING WITH UPPER AIRWAY WHEEZE/STRIDOR ASSESSMENT DONE PRN RACEMIC EPINEPHRINE INHALATION 2.25% WITH 3ml STERILE WATER GIVEN AT THIS TIME
--- NOTE | 2019-03-25 07:00 | NUR ---
epinephrine drip dc'd as ordered by dr ferrell.
--- NOTE | 2019-03-25 07:04 | NUR ---
RECEIVED BEDSIDE REPORT FROM MAYDA TREATMENT SPECIALIST RN, FOR CONTINUITY OF CARE. PATIENT IS AAOX4. SKIN IS WARM, DRY, INTACT, PERIPHERAL IV SITE TO LEFT AND RIGHT HAND, ASYMPTOMATIC AND PATENT. PATIENT IS ON ROOM AIR, BREATHING EVEN AND UNLABORED. SR ON MONITOR, DENIES PAIN, SOB. HOB IS 45 DEGREES, SIDE RAILS UP 3X, BED LOCKED IN LOW POSITION. CALL LIGHT WITHIN REACH. NO SIGNS OF DISTRESS NOTED. WILL CONTINUE TO MONITOR.
--- NOTE | 2019-03-25 07:18 | NUR ---
report given to ANDREINA RN, PTS EYES CLOSE; NO SOB NOTED.DENIES PAIN
--- NOTE | 2019-03-25 08:19 | NUR ---
PATIENT HAS BEEN SCREENED AND CATEGORIZED LOW NUTRITION RISK. PATIENT WILL BE SEEN WITHIN 7 DAYS OF ADMISSION. 03/31/[address]
--- NOTE | 2019-03-25 09:15 | NUR ---
RECEIVED A CALL FROM VIDAL FAUSTIN FROM [facility], UPDATED ON PATIENT'S CONDITION. PROVIDED ME WITH PHONE NUMBER [phone] FOR UPDATES.
[2019-03-25] MEDS: FAMOTIDINE 20 MG/2 ML VIAL IV SCH ×2 (09:52→20:20)
--- NOTE | 2019-03-25 11:36 | NUR ---
PATIENT COMPLAINING OF HAVING ANOTHER EPISODE. ADMINISTERED SCHEDULED BENADRYL 25MG IVP. PATIENT TOLERATED WELL.
--- NOTE | 2019-03-25 12:19 | NUR ---
PROVIDED PATIENT WITH LUNCH TRAY, PATIENT IS SITTING UP EATING
[2019-03-25 14:08] LABS: BARBITURATE, URINE NEG. ng/ml (NEG <=200); BENZODIAZEPINE, URINE POS. ng/mL (NEG <=200); CANNABINOID, URINE NEG. ng/mL (NEG <=50); COCAINE, URINE NEG. ng/mL (NEG <=300); OPIATE, URINE POS. ng/mL (NEG <=2000); PHENCYCLIDINE SCREEN,URINE NEG. ng/mL (NEG <=25)
--- NOTE | 2019-03-25 15:13 | NUR ---
PATIENT COMPLAINING OF BEING ITCHY, SCHEDULED BENADRYL 25MG IVP GIVEN
--- NOTE | 2019-03-25 15:15 | NUR ---
PER PRIMARY RN, PATIENT MIGHT DC TODAY PENDING MD ROUNDS. Addendum: 03/25/19 at 1517 by Stacey Sheppard CM VIDAL FAUSTIN AT [facility] [phone], MADE AWARE.
--- NOTE | 2019-03-25 19:15 | NUR ---
RECEIVED REPORT FROM AM NURSE. PT AT BED EYES CLOSED, BREATHING REGULARLY, ON ROOM AIR, LUNG SOUNDS CLEAR THROUGHOUT, HEART RATE REGULAR S1S2 PRESENT, CAP REFILL <3S, PULSES 2+ BILATERAL UPPER AND LOWER EXTREMITIES, ABDOMEN SOFT ROUND, NONDISTENDED, NONTENDER, BOWEL SOUNDS ACTIVE IN ALL QUADRANTS, SKIN INTACT, COLOR APPROPRIATE TO ETHNICITY, PT HAS 5/5 BILATERAL UPPER AND LOWER EXTREMITIES MUSCLE STRENGTH, PT HAS RIGHT HAND 22 GAUGE SALINE LOCK, LEFT FINGER 24 GAUGE, SALINE LOCK, HOB 30 DEGREES, SIDE RAILS UP X2, BED AT LOWEST POSITION.
--- NOTE | 2019-03-25 21:40 | NUR ---
PT REQUESTED BENADRYL. REMINDED THAT HE IS NOT DUE FOR BENADRYL IVP YET. PT REQUESTS PICC LINE TO BE INSERTED REPORTS IV SITE IS CAUSING HIM PAIN. D/C RIGHT HAND PERIPHERAL IV.
--- NOTE | 2019-03-25 21:45 | NUR ---
LATE ENTRY: PT REFUSED INSERTION OF PERIPHERAL IV ACCESS.
[2019-03-25] MEDS ORDERED: EPINEPHrine 1:1000 1 MG/ML VIAL IV PRN (21:55)
--- NOTE | 2019-03-25 22:41 | NUR ---
RECEIVED CALL FROM DR. BYRD. DOES NOT RECOMMEND PICC LINE AT THIS TIME. NO NEW ORDERS.
--- NOTE | 2019-03-25 22:45 | NUR ---
RECEIVED CALL FROM DR. CONROY. DOES NOT RECOMMEND PICC LINE. NO NEW ORDERS.
[2019-03-25] MEDS ORDERED: EPINEPHrine 1:1000 - 1 MG/ML AMP IM PRN ×3 (22:50)
--- NOTE | 2019-03-25 23:14 | NUR ---
PT LEFT THE HOSPITAL. AGAINST MEDICAL ADVICE. PT PICKED UP BY FRIEND BY CAR.
== END 2019-03-25 23:14 | disposition left against medical advice (07) | DRG 811 ==
LOC: MED 22:30 → MIC 03-25 01:16
PROVIDERS: ADMIT Internal Medicine Pulmonary Disease; ATTEND Internal Medicine Pulmonary Disease
DX: T78.2XXA Anaphylactic shock, unspecified, initial encounter (principal); J96.01 Acute respiratory failure with hypoxia; J45.909 Unspecified asthma, uncomplicated; Z53.21 Procedure and treatment not carried out due to patient leaving prior to being seen by health care provider; Z88.8 Allergy status to other drugs, medicaments and biological substances; Z79.899 Other long term (current) drug therapy
CPT/HCPCS: 36415; 71045; 80053; 80305; 85025; 87081; 94640; 96372; 99285; J0171; J1200; J2060; J2270; J2405; J3490; J7613; Q0092

== ENCOUNTER 2019-06-03 00:32 | Inpatient (IN) | payer MEDICAID ==
[~2019-06-03] VITALS: Ht 177.8 cm; Wt 90.7 kg
[2019-06-03] VITALS (11 sets, daily range): BP systolic 101–145; BP diastolic 54–84
--- NOTE | 2019-06-03 00:34 | NUR ---
PT BIB WHEELCHAIR TO ER BED 2
[2019-06-03] MEDS ORDERED: RACEPINEPHRINE 2.25% 13.5 MG/0.5 ML NEBU INH ONE ×2 (00:40→01:55)
[2019-06-03] MEDS ORDERED: diphenhydrAMINE 50 MG/ML VIAL IVP ONE ×2 (00:40→01:10)
[2019-06-03] MEDS ORDERED: EPINEPHrine 1:1000 - 1 MG/ML AMP IM ONE ×3 (00:40→01:55)
[2019-06-03] MEDS ORDERED: FAMOTIDINE 20 MG/2 ML VIAL IVP ONE (00:40)
[2019-06-03] MEDS ORDERED: NACL 0.9% 1,000 ML IV ONE (00:40)
--- NOTE | 2019-06-03 00:45 | NUR ---
PATIENT SITTING UP IN BED, RECIEVING BREATHING TREATMENT. RT AND DR YAO AT BEDSIDE. LAURA PRECAUTIONS PUT IN PLACE. Addendum: 06/03/19 at 0108 by ALEJA ASSESSMENT COMPLETED AT THIS TIME.
--- NOTE | 2019-06-03 01:00 | NUR ---
PATIENT SITTING UP IN BED, ABLE TO SPEAK IN FEW WORK PHRASES, RECIEVING BREATHING TREATMENT. LAB AT BEDSIDE.
[2019-06-03] MEDS ORDERED: EPINEPHrine 1:1000 (1 mg/mL) 1 MG in DEXTROSE 5% 250 ML IV PRN (01:20)
[2019-06-03] MEDS ORDERED: EPINEPHrine 1:1000 - 1 MG/ML AMP ONE (01:25)
[2019-06-03 01:26] LABS: BASOPHILS % (AUTO) 0.5 % (0.0-2.0); EOSINOPHILS # (AUTO) 0.1 K/uL (0-0.4); EOSINOPHILS % (AUTO) 1.5 % (0.0-4.0); HEMATOCRIT 45.5 % (36-52); HEMOGLOBIN 15.8 g/dL (12.0-18.0); LYMPHOCYTES # (AUTO) 2.2 K/uL (2.0-11.5); LYMPHOCYTES % (AUTO) 40.1 % (20.5-51.1); MEAN CORPUSCULAR HEMOGLOBIN 31 pg (27-31); MEAN CORPUSCULAR HGB CONC 35 g/dL (33-37); MEAN CORPUSCULAR VOLUME 88.7 fL (80-94); MONOCYTES # (AUTO) 0.4 K/uL (0.8-1.0); MONOCYTES % (AUTO) 7.8 % (1.7-9.3); NEUTROPHILS # (AUTO) 2.7 K/uL (1.8-7.7); NEUTROPHILS % (AUTO) 50.1 % (42.2-75.2); PLATELET COUNT (AUTO) 295 K/uL (140-450); RED BLOOD CELL COUNT(AUTO) 5.13 MIL/uL (4.20-6.10); WHITE BLOOD COUNT (AUTO) 5.4 K/uL (4.8-10.8)
[2019-06-03 01:36] LABS: ANION GAP 15.4 (8-16); CARBON DIOXIDE 25.3 mmol/L (21-32); POTASSIUM 3.7 mmol/L (3.5-5.1)
[2019-06-03 01:41] LABS: ALBUMIN 4.2 g/dL (3.4-5.0); TOTAL BILIRUBIN 0.2 mg/dL (0.0-1.0)
--- NOTE | 2019-06-03 01:43 | NUR ---
PATIENT SITTING UP IN BED, ABLE TO SPEAK IN FULL SENTENCES WITH SOFT VOICE. STATES HE IS FEELING MUCH BETTER.
[2019-06-03] MEDS ORDERED: diphenhydrAMINE 50 MG/ML VIAL IM ONE (01:55)
--- NOTE | 2019-06-03 01:55 | NUR ---
PATIENT STATES BREATHING IS GETTING HARD AGAIN. WHEEZING HEARD. RT CALLED. ERMD MADE AWARE, WILL GIVE MEDICATIONS ORDERED.
[2019-06-03] MEDS ORDERED: KETOROLAC 30 MG/ML VIAL IVP ONE (02:10)
--- NOTE | 2019-06-03 02:10 | NUR ---
PER ADMITTING, UNDER [facility] PT TO BE ADMITTED UNDER [facility]
--- NOTE | 2019-06-03 02:20 | NUR ---
CALLED PICC LINE NURSE [phone] AND LEFT A MESSAGE
[2019-06-03 02:40] LABS: BARBITURATE, URINE NEG. ng/ml (NEG <=200); BENZODIAZEPINE, URINE POS. ng/mL (NEG <=200); CANNABINOID, URINE NEG. ng/mL (NEG <=50); COCAINE, URINE NEG. ng/mL (NEG <=300); OPIATE, URINE NEG. ng/mL (NEG <=2000); PHENCYCLIDINE SCREEN,URINE NEG. ng/mL (NEG <=25)
--- NOTE | 2019-06-03 03:00 | NUR ---
UNABLE TO OBTAIN IV, CHARGE NURSE INFORMED. ERMD DR YAO INFORMED.
--- NOTE | 2019-06-03 04:00 | NUR ---
UNABLE TO OBTAIN IV ACCESS. STAFF MADE UNSUCCESFULL ATTEMPTS. ERMD MADE AWARE, MAINTENANCE OF WAY CLERK MADE AWARE OF STATUS. PER MAINTENANCE OF WAY CLERK, PICC LINE NURSE WAS NOTIFIED AND WILL OBTAIN ACCESS LATER IN THE MORNING.
--- NOTE | 2019-06-03 04:15 | NUR ---
PATIENT BROUGHT INTO ICU BED 5 VIA RMOBILE, PATIENT ABLE TO AMBULATE TO ICU BED FROM [facility] WITHOUT INCIDENT.
--- NOTE | 2019-06-03 04:22 | NUR ---
PATIENT ADMITTED TO ICU UNDER THE CARE OF DR JENNINGS. REPORT GIVEN TO ICU NURSE MUKESH. PATIENT AAO, STABLE DURING TRANSPORT IN [facility] ON MONITOR.
--- NOTE | 2019-06-03 04:30 | NUR ---
MRSA NARES SWAB COLLECTED AND WALKED TO LAB.
--- NOTE | 2019-06-03 04:30 | NUR ---
AFTER A FEW ATTEMPTS, ABLE TO START PERIPHERAL IV IN LEFT WRIST, 24G. GOOD BLOOD RETURN AND ABLE TO FLUSH WITHOUT SYMPTOMS. IV SITE SECURED WITH TEGADERM TRANSPARENT DRESSING.
--- NOTE | 2019-06-03 04:40 | NUR ---
PT ANOx4, ABLE TO FOLLOW COMMANDS AND MAKE NEEDS KNOWN. PATIENT ON AEROSOL MIST. AT 9LPM. SATURATIONS 99%, RR- 14. BREATHING IS CURRENTLY UNLABORED AND NO SIGNS/SYMPTOMS OF COUGH OR RESTRICTED AIRWAY. S1,S2, SR ON MONITOR. SKIN IS INTACT, FACE IS SLIGHTLY FLUSHED BUT NO SIGNS OF ANGIOEDEMA. NO SIGNS OF WELTS/RASHES NOTED ON SKIN, PATIENT SAID PRIOR TO GETTING TREATMENT IN ER, HIS CHEST HAD RASHES BUT NOW IS IMPROVED. DENIES PAIN AT THIS TIME. CONNECTED TO SHAMPOOER AND UPDATED ON CARE PLAN. CALL LIGHT WITHIN REACH, SIDERAILS UPx3. WILL CONTINUE TO MONITOR.
--- NOTE | 2019-06-03 04:50 | NUR ---
CALLED/PAGED FOR ADMITTING ORDERS. WAITING INTELLIGENCE RESEARCH SPECIALIST BACK.
--- NOTE | 2019-06-03 05:15 | NUR ---
CALLED/PAGED DR. CONROY FOR SECOND TIME, WAITING HANDSTITCHING MACHINE ARMHOLE FELLER BACK.
--- NOTE | 2019-06-03 05:22 | NUR ---
CALLED PICC LINE NURSE [phone] AND LEFT A MESSAGE
--- NOTE | 2019-06-03 05:23 | NUR ---
PATIENT SUDDENLY STARTING TO RECEIVE SYMPTOMS OF WHEEZING, PATIENT IS GASPING AND SAYING HE CANNOT BREATH. SATURATION IS 100% WITH AEROSOL MIST FLOWING AT 9LPM. RESPIRATIONS ARE 16, AUDIBLE WHEEZING HEARD, EQUAL CHEST RISE WITHOUT USE OF ACCESSORY MUSCLES. CALLED RT CACERES TO COME SEE PATIENT FOR SOB. PATIENT IS ABLE TO MAKE FULL SENTENCES. WILL CALL DR. GARCIA FOR ORDERS.
--- NOTE | 2019-06-03 05:30 | NUR ---
RECEIVED ADMITTING ORDERS. ATTEMPTED TO ADMINISTER BENEDRYL INDICATED IM/IVP AND PATIENT GETTING UPSET AND YANKED OFF MASK AND YELLED AT RN'S "I CANT F BREATH" RN ATTEMPTING TO CALM PATIENT DOWN AND ASKED IF PATIENT WANTS MEDICATIONS FOR ANXIETY. PATIENT BECOMES MORE ANGRY, SITS UP REALLY FAST AND YELLS IN RN's FACE "DONT FANGUS TALK TO ME! PATIENT REQUESTING ANOTHER NURSE. CHARGE NURSE ADMINISTERS BENEDRYL AND PATIENTS WHEEZING IMMEDIATELY CEASES. PATIENT TAKES OFF MASK AND EXPLAINS WHY HE IS SO UPSET. STATES NURSES ARE ABLE TO OVERRIDE MEDICATIONS AND CAN GIVE ANY MEDICATION THE PATIENT NEEDS AND IT SHOULDNT TAKE THIS LONG. RESPIRATIONS, SATURATIONS AND ALL OTHER VITAL SIGNS HAVE REMAINED WITHIN NORMAL RANGES. RN's ABLE TO CLARIFY WITH PATIENT WHAT RN's SCOPE OF PRACTICE IS. PATIENT REQUESTING TO SPEAK WITH AMPHIBIOUS OPERATIONS OFFICER. AMPHIBIOUS OPERATIONS OFFICER EXPLAINS THAT NURSES CANNOT ADMINISTER ANY MEDICATION WITHOUT AN ORDER.
[2019-06-03] MEDS ORDERED: diphenhydrAMINE 50 MG/ML VIAL ONE (05:34)
[2019-06-03] MEDS ORDERED: RACEPINEPHRINE 2.25% 13.5 MG/0.5 ML NEBU INH PRN ×2 (06:00→06:15)
[2019-06-03] MEDS ORDERED: ALBUTEROL 0.083% 2.5 MG/3 ML NEBU INH PRN (06:00)
[2019-06-03] MEDS ORDERED: diphenhydrAMINE 50 MG/ML VIAL IVP PRN ×2 (07:05→08:10)
--- NOTE | 2019-06-03 07:11 | NUR ---
RECEIVED BEDSIDE REPORT FROM MAYDA STATISTICAL GENETICIST RN, FOR CONTINUITY OF CARE. PATIENT IS AAOX4, ON ROOM AIR, SR ON MONITOR, DENIES ANY PAIN OR SOB. PATIENT SKIN IS WARM, DRY, INTACT. NO SIGNS OF DISTRESS NOTED. WILL CONTINUE TO MONITOR
--- NOTE | 2019-06-03 07:20 | NUR ---
PATIENT IS HAVING ANOTHER ANAPHYLACTIC EPISODE, STATES THAT HE NEEDS EPI. WILL ADMINISTER PRN
[2019-06-03] MEDS: EPINEPHrine 1:1000 - 1 MG/ML AMP IM PRN ×2 (07:22→10:47)
[2019-06-03] MEDS ORDERED: ACETAMINOPHEN 325 MG TAB PO PRN (07:45)
--- NOTE | 2019-06-03 07:51 | NUR ---
CALLED PICC LINE NURSE [phone] AND LEFT A MESSAGE
--- NOTE | 2019-06-03 08:02 | NUR ---
PATIENT HAS BEEN SCREENED AND CATEGORIZED LOW NUTRITION RISK. PATIENT WILL BE SEEN WITHIN 7 DAYS OF ADMISSION. 06/09/[address]
--- NOTE | 2019-06-03 08:03 | NUR ---
PATIENT IS HAVING ANOTHER ANAPHYLACTIC EPISODE, BENADRYL GIVEN.
--- NOTE | 2019-06-03 08:13 | NUR ---
PICC LINE RN CALLED, STATES TO CALL HER ONCE PICC LINE CONSENT HAS BEEN SIGNED BY
--- NOTE | 2019-06-03 08:25 | NUR ---
ASLEEP ON LEFT SIDE GOOD CHEST RISE NO EVIDENCE OFANAPHYLAXIS OR PULMONARY DISTRESS NOTED AT THIS TIME
[2019-06-03 09:48] LABS: PROTHROMBIN TIME 9.6 secs (10.8-13.4)
--- NOTE | 2019-06-03 09:57 | NUR ---
DISCHARGE PLANNING: A 33 Y/O MALE PATIENT FROM HOME, WHO CAME IN DUE TO ACUTE ONSET OF WHEEZING AND SHORTNESS OF BREATH. PAST MEDICAL HISTORY INCLUDE ASTHMA. INITIAL DIAGNOSIS OF IDIOPATHIC ANAPHYLAXIS. CURRENT LABS INCLUDE WBC 5.4, H/H 15.8/45.5. TOXICOLOGY SHOWED (+) FOR BENZO. CXR NORMAL ON ADMISSION. NO CONSULTS AT THIS TIME. ON CLEAR LIQUID DIET. DC PLAN TO GO BACK HOME ONCE STABLE. Addendum: 06/03/19 at 1402 by Stacey Sheppard CM 1130: MET WITH THE PATIENT AT THE BEDSIDE TO GATHER SOME INFORMATION REGARDING FINANCE BUSINESS PARTNER APPOINTMENTS THAT HAVE BEEN MISSED. HE STATED HE IS NOT AWARE OF THESE, SAYING "I WAS NOT AWARE OF THESE." 1340: CONTACTED RADHA FAUSTIN OF [facility] AT [phone], UPDATED HER OF PATIENT'S CONDITION. I ALSO INFORMED HER THAT PATIENT DENIED ANY REFERRAL TO IMMUNOLOGISTS, SHE STATED THAT THEY APPROVED THAT SAID REFERRALS. SHE ALSO STATED THAT SHE WILL MAKE THE APPOINTMENTS HERSELF AND WILL CALL/FAX ME THE APPOINTMENT DATE. SHE ALSO STATED PATIENT PATIENT WILL STAY HERE UNTIL DC, NO NEED TO BE TRANSFERRED TO A CONTRACTED FACILITY. SHE ALSO PROVIDED ME THE FAX NUMBER [phone] TO SEND CLINICALS. CLINICALS AND POST STABILIZATION FORM SENT TO THE PROVIDED NUMBER. Addendum: 06/04/19 at 1129 by Stacey Sheppard CM CONTACTED ROXIE RADHA [facility] AT [phone], INFORMED HER THAT PATIENT WILL BE DISCHARGING TODAY. SHE STATED THAT SHE WILL BE FAXING OVER PATIENT'S APPOINTMENT WITH DR. FRANCIS IN [place] ON JUN 09, 2019 AT 1520 PM. WILL PROVIDE A COPY TO THE PATIENT SOON I RECEIVE THE FAX. Addendum: 06/04/19 at 1148 by Stacey Sheppard RECEIVED THE COPY OF THE APPOINTMENT. COPY PROVIDED TO THE PATIENT, ABLE TO VERBALIZE UNDERSTANDING.
--- NOTE | 2019-06-03 10:32 | NUR ---
DR. CONROY IS HERE TO EXAMINE PATIENT, UPDATED ON PATIENT'S CONDITION. PATIENT STATES IF HE CAN HAVE BENADRYL 50 MG Q2H, DR. CONROY STATES THAT DOSE IS TOO MUCH, GAVE ORDER FOR BENADRYL 50 MG Q4H.
[2019-06-03] MEDS: LORazepam 2 MG/ML VIAL IVP PRN ×4 (10:34→23:34)
--- NOTE | 2019-06-03 10:46 | NUR ---
PATIENT IS HAVING ANOTHER EPISODE, PER DR. RAFIQ MATUTEL IS TOO MUCH, GIVE ATIVAN.
--- NOTE | 2019-06-03 12:07 | NUR ---
PATIENT IS HAVING ANOTHER EPISODE, STATES THAT HE NEEDS BENADRYL, ADMINISTERED PRN
[2019-06-03] MEDS: ONDANSETRON 4 MG/2 ML VIAL IVP PRN ×2 (12:11→23:41)
--- NOTE | 2019-06-03 15:06 | NUR ---
PICC LINE RN IS HERE.
--- NOTE | 2019-06-03 15:06 | NUR ---
Performance Makeup Artist Note: Basic Screen: No High Risk DC Screen Knierim: PEGGY Guerrero Relationship: MOTHER Pre-Admission Living Arrangements: Lives with Other Other: MOTHER Prior ADL Independent Current Home Health Name/Tel: N/A Current DME/02 Name/Tel: [facility] Current Hospice Name/Tel: N/A Current Dialysis Name/Tel: N/A Healthcare Decision Maker: Patient Advance Directive No Physician Orders for Life Sustaining Treatment Form No Information Taught: Advance Directive Community Resources Person Taught: Patient Teaching Tools: Verbal Factors Affecting Learning: None Participation Level: Refused Evaluation: Verbalizes Understanding Needs Additional Education: No Discipline: Case Mgt/Social Svcs Tentative Discharge Plan/Destination: No Needs Identified Will require assistance post discharge: No Referred to Microchip Specialist: No Tentative Discharge Plan Summary: Patient is a 33-year-old male admitted for idiopathic anaphylaxis. Patient has PMHX of asthma. Patient was admitted from home. SW verified demographics with patient. Patient requested to add mother Peggy Eller [phone] to face sheet. SW provided education on advanced directive but patient refused. Patient stated that he has a mental health history of depression and anxiety and is arranging mental health services. Patient reports no substance abuse history. Patient's tentative plan after discharge is to return home. No further needs identified. Signature: JOHN Rizo Date: Jun 03, 2019 Time: 15:05
--- NOTE | 2019-06-03 15:45 | NUR ---
PICC LINE INSERTION IS COMPLETE, PER PICC LINE RN, OKAY TO USE.
[2019-06-03] MEDS: diphenhydrAMINE 50 MG/ML VIAL IVP PRN ×3 (15:54→23:27)
[2019-06-03] MEDS: DEXT 5% / NACL 0.45% 1,000 ML IV SCH (16:51)
--- NOTE | 2019-06-03 17:54 | NUR ---
PATIENT IS RESTING, NO SIGNS OF DISTRESS NOTED.
--- NOTE | 2019-06-03 18:11 | NUR ---
PROVIDED PATIENT WITH DINNER TRAY, PATIENT ONLY ATE LESS THAN 25%
--- NOTE | 2019-06-03 19:40 | NUR ---
RECEIVED PT FROM AM SHIFT RN. PT IS AWAKE ALERT ORIENTED X4. NO S/S OF RESP DISTRESS, NO SOB NOTED. RESP EVEN UN LABOR. FACE LOOK REDNESS FROM ANAPHYLACTIC REACTIONS. CONT ON CARDIAC MONITORING SHOWS SR WITH BBB IN MONITOR.MID LINE TO RIGHT UPPER ARM DOUBLE LUMENS. WITH IV D5 IN 1/2 NS AT 75 CC/HR DENISSE WELL.SKIN WARM TO TOUCH. ABD SOFT NON DISTENDED. PT DENIES ANY PAIN OR DISCOMFORT. PT IS CONTINENT BLADDER AND BOWEL. GENTLE CARE GIVEN. KEPT CLEAN AND DRY.CALL LIGHT IN REACH.
--- NOTE | 2019-06-03 20:30 | NUR ---
BENADRYL AND ATIVAN IVP ORDER GIVEN TOLERATED WELL. PT ASKING TO REMOVE THE LEFT WRIST PERIPHERAL LINE. LINE REMOVED NO BLEEDING NOTED. PT ASKIN FOR SANDWICH AND GIVEN TO PT. PT IS REGULAR DIET.
--- NOTE | 2019-06-03 22:00 | NUR ---
PT MOTHER CALL AND UP DATE PT CONDITION. PER MOTHER WILL VISIT IN AM. PT MADE AWARE.
--- NOTE | 2019-06-03 23:50 | NUR ---
BENADRYL AND ATIVAN GIVEN PRN ORDER D/T PT SAYING FEELING ANXIETY.
[2019-06-04] VITALS (7 sets, daily range): BP systolic 100–122; BP diastolic 53–81
--- NOTE | 2019-06-04 02:00 | NUR ---
PT SLEEPING WELL.
--- NOTE | 2019-06-04 04:56 | NUR ---
BENADRYL AND ATIVAN GIVEN C/O ITCHING AND ANXIETY.PT SAYING HE IS HUNGRY AND SANDWICH GIVEN.
[2019-06-04] MEDS: diphenhydrAMINE 50 MG/ML VIAL IVP PRN ×2 (05:14→09:01)
[2019-06-04] MEDS: LORazepam 2 MG/ML VIAL IVP PRN ×2 (05:15→09:29)
[2019-06-04] MEDS: DEXT 5% / NACL 0.45% 1,000 ML IV SCH (05:19)
[2019-06-04] MEDS: HYDROcodone/APAP 5/325 MG 1 TAB TAB PO PRN ×2 (05:57→10:01)
--- NOTE | 2019-06-04 06:48 | NUR ---
AM CARE GIVEN KEPT CLEAN AND DRY
--- NOTE | 2019-06-04 07:30 | NUR ---
BEDSIDE REPORT RECEIVED FROM FOOD STYLIST NURSE, PT RESTING WITH EYES CLOSED, AROUSES TO VOICE, OX3, SPEAKS CLEARLY, RESP EVEN UNLABORED, VITALS STABLE SR ON MONITOR, MIDLINE TO CRYSTAL, D51/2NS INFUSING AT 75ML/HR, SITE WNL, SKIN WARM DRY COLOR WNL, PT DENIES PAIN OR DISCOMFORT, PLAN OF CARE REVIEWED, NO IMMEDIATE NEEDS AT THIS TIME, ALL SAFETY MEASURES IN PLACE, WILL CONTINUE TO MONITOR.
--- NOTE | 2019-06-04 08:15 | NUR ---
PT PUSHED CALL [facility] TO FIND OUT WHEN NEXT BENADRYL DOSE IS DUE, PT STATES HE HAS SOME ITCHING, NO HIVES OR REDNESS NOTED, BS CLEAR, NO WZ NOTED, SPEAKS CLEARLY WITHOUT PROBLEM, BENADRYL GIVEN LAST AT 0515, NOT DUE UNTIL 914, PT STATES HE CAN WAIT UNTIL 914, WILL CONTINUE TO MONITOR.
[2019-06-04] MEDS ORDERED: PROBIOTIC SCREEN 1 EA MISC MC PRN (09:05)
--- NOTE | 2019-06-04 09:10 | NUR ---
PT C/O THROAT TIGHTNESS, AND DIFFI BREATHING, LUNG SOUNDS CLEAR BILAT, UPPER AIRWAY WZ NOTED, VITALS STABLE ON MONITOR, HR 80, RR 20, O2SAT 96% BP 104/86. BENADRYL GIVEN IVP, PT ALSO REQUESTS ATIVAN, ATIVAN NOT DUE UNTIL 914, WILL GIVE WHEN DUE.
--- NOTE | 2019-06-04 09:30 | NUR ---
PT PRESSED CALL [facility] TO REQUEST FOR ATIVAN, PT NOW TALKING CLEARLY, NO HOARSENESS IN HIS VOICE, NO WZ NOTED, PT STATES HE FEELS ANXIOUS, ATIVAN GIVEN PER PRN ORDER.
--- NOTE | 2019-06-04 10:05 | NUR ---
PT RESTING QUIETLY IN NO ACUTE DISTRESS, RESP EVEN UNLABORED, NO STRIDOR OR COUGHS NOTED, DR CONROY AT BEDSIDE, PT TO BE DC HOME.
--- NOTE | 2019-06-04 10:45 | NUR ---
PT CALLED HIS MOTHER ELY TO PICK HIM UP, SHE LIVES IN [place], 20-30MIN AWAY PER PATIENT.
--- NOTE | 2019-06-04 11:25 | NUR ---
DISCHARGE INSTRUCTION GIVEN AND EXPLAINED TO PT, PT VERBALIZED FULL UNDERSTANDING, PER RFAFAELE FAUSTIN, INSURANCE WILL CALL PT FOR FOLLOW UP APPOINT WITH BARREL BANDER. PT MADE AWARE.
--- NOTE | 2019-06-04 11:31 | NUR ---
AWAITING PT'S MOTHER TO PICK HIM UP.
--- NOTE | 2019-06-04 12:00 | NUR ---
PT SITTING UP EATING LUNCH, DENIES PAIN DENIES DIFF BREATHING, RESP EVEN UNLABORED, NO STRIDOR OR COUGHING, PT AWAITING MOTHER ELY FOR RIDE HOME, PT UP OUT OF BED WITHOUT ASSIST, AMBULATES WITH STEADY GAIT, DENIES ANY SOB, DENIES DIZZINESS.
[2019-06-04] MEDS: ONDANSETRON 4 MG/2 ML VIAL IVP PRN (12:05)
--- NOTE | 2019-06-04 12:28 | NUR ---
MIDLINE REMOVED FROM R UA, BLEEDING COTNROLLED, CATH TIP INTACT, PT DENISSE WELL, PT ESCORTED OUT TO [facility] HOME WITH MOM ELY.
== END 2019-06-04 12:28 | disposition home or self-care (01) | DRG 811 ==
LOC: MED 00:32 → MIC 03:02
PROVIDERS: ADMIT Internal Medicine Pulmonary Disease; ATTEND Internal Medicine Pulmonary Disease
PROC: 05HY33Z Insertion of Infusion Device into Upper Vein, Percutaneous Approach (ICD-10-PCS; principal; 2019-06-03)
PROC: B54MZZA Ultrasonography of Right Upper Extremity Veins, Guidance (ICD-10-PCS; 2019-06-03)
DX: T78.2XXA Anaphylactic shock, unspecified, initial encounter (principal); R06.1 Stridor; J45.909 Unspecified asthma, uncomplicated; Z87.892 Personal history of anaphylaxis; Z88.8 Allergy status to other drugs, medicaments and biological substances; Z79.899 Other long term (current) drug therapy; Y92.89 Other specified places as the place of occurrence of the external cause
CPT/HCPCS: 36415; 71045; 80053; 80305; 85025; 85610; 85730; 87081; 94640; 96372; 99291; C1751; J0171; J1200; J1885; J2060; J2405; J3490; J7030; Q0092

== ENCOUNTER 2019-07-04 01:41 | Emergency (ER) | payer MEDICAID ==
[~2019-07-04] VITALS: Ht 177.8 cm; Wt 86.2 kg
[2019-07-04] MEDS ORDERED: RACEPINEPHRINE 2.25% 13.5 MG/0.5 ML NEBU INH ONE ×2 (01:45→03:10)
[2019-07-04] MEDS ORDERED: EPINEPHrine 1:1000 - 1 MG/ML AMP SUBQ ONE (01:45)
[2019-07-04 01:48] VITALS: BP 128/86
--- NOTE | 2019-07-04 01:50 | NUR ---
PT 33 Y/O MALE BIB SELF WITH REPORTS OF SOB AND DIFFICULTY BREATHING STARTING 10 MIN PRIOR TO ARRIVING TO ED. PATIENT HAS AUDIBLE INSPIRITORY WHEEZING AND REDNESS TO FACE AND CHEST. PT RR @ 30. PT UNABLE TO SPEAK IN FULL SENTENCES AT THIS TIME. PT ON CONTINOUS O2 RUNNING AT 10L/MIN VIA SIMPLE MASK. PT 02SAT @100%. AT BEDSIDE. MEDHX: IDOPATHIC ANAPHYLAXIS ALLERGIES: SEE CHART
--- NOTE | 2019-07-04 02:05 | NUR ---
RT at bedside.
--- NOTE | 2019-07-04 02:20 | NUR ---
PT SITTING UP IN BED AND ABLE TO SPEAK IN FULL SENTENCES. PT STATES," I FEEL SO MUCH BETTER." PT CONTUIES TO BE ON MONITOR. O2SAT @ 96% ON RA.
--- NOTE | 2019-07-04 02:20 | NUR ---
02 TITRATED TO ROOM AIR. PT SP02 97% ON ROOM AIR.
--- NOTE | 2019-07-04 02:24 | NUR ---
Patient unplugging O2Sat and taking pictures of monitor. Current VS's BP 128/86, HR 106, and O2Sat 97%.
--- NOTE | 2019-07-04 02:26 | NUR ---
Pt unplugged OSat again. Nurse reconnected.
--- NOTE | 2019-07-04 03:05 | NUR ---
PT HAVING C/O OF SOB. RR 14, O2SAT @ 97% ON RA, PULSE: 98, B/P: 128/86. DR ALMEIDA MADE AWARE. GAVE ORDER FOR RT TX. RT CALLED.
--- NOTE | 2019-07-04 03:11 | NUR ---
RT AT BEDSIDE.
--- NOTE | 2019-07-04 04:04 | NUR ---
PT STATES, "I FEEL BETTER." PT SITTING UPRIGHT. RESPIRATIONS ARE EVEN AND UNLABORED. PT O2SAT @ 95% ON RA. 0/10 PAIN. RR:14. BED IN LOWEST POSITION AND LOCKED IN PLACE.
[2019-07-04] MEDS ORDERED: FAMOTIDINE 20 MG TAB PO ONE (04:25)
[2019-07-04 05:00] VITALS: BP 119/85
--- NOTE | 2019-07-04 05:00 | NUR ---
Patient discharged with v/s stable. No sob/dyspnea. No audible wheezing. Written and verbal after care instructions given and explained. Patient alert, oriented and verbalized understanding of instructions. Ambulatory with steady gait. All questions addressed prior to discharge. ID band removed. Patient advised to follow up with PMD and when to return to ER. Rx of Epipen 2-Pack given. Patient educated on indication of medication including possible reaction and side effects. Opportunity to ask questions provided and answered. Provided with taxi and bus vocher to get home.
== END 2019-07-04 05:00 | disposition home or self-care (01) ==
LOC: MED 01:41
DX: T78.2XXA Anaphylactic shock, unspecified, initial encounter (principal); R00.0 Tachycardia, unspecified; J45.909 Unspecified asthma, uncomplicated; Z79.899 Other long term (current) drug therapy; Z88.8 Allergy status to other drugs, medicaments and biological substances
CPT/HCPCS: 94640; 96372; 99284; J0171

== ENCOUNTER 2023-12-08 00:23 | Emergency (ER) | payer MEDICAID ==
[~2023-12-08] VITALS: Ht 177.8 cm; Wt 81.6 kg
[2023-12-08 00:23] VITALS: BP 144/86; PULSE 115; RESP 16; TEMP 97.4; O2SAT 98
[~2023-12-08 00:23] MED LIST changes: -CETI-32 PO; +CETI10TA81 PO
[2023-12-08] MEDS: MAG SULF 2000 MG/WATER PREMIX 50 ML IV ONE (00:30)
[2023-12-08] MEDS: ALBUTEROL 0.083% 2.5 MG/3 ML NEBU INH ONE (00:33)
[2023-12-08 00:34] VITALS: PULSE 114; RESP 28; O2SAT 98
[2023-12-08] MEDS ORDERED: EPINEPHrine 1 MG/ML AMP ONE (01:04)
[2023-12-08] MEDS: EPINEPHrine 1 MG/ML AMP SUBQ ONE (01:10)
[2023-12-08] MEDS: diphenhydrAMINE 50 MG/ML VIAL IVP ONE (01:12)
[2023-12-08 01:44] VITALS: BP 150/91; PULSE 107; RESP 28; TEMP 97.4; O2SAT 98
== END 2023-12-08 01:44 | disposition home or self-care (01) ==
LOC: MED 00:23
DX: R06.02 Shortness of breath (principal); D89.40 Mast cell activation, unspecified; Z88.5 Allergy status to narcotic agent; Z88.8 Allergy status to other drugs, medicaments and biological substances; Z79.899 Other long term (current) drug therapy
CPT/HCPCS: 94640; 96372; 96374; 99284; J0171; J1200; J3475